=== PATIENT | male | born 1975 | race American Indian/Alaskan Native ===

== ENCOUNTER 2016-10-22 07:00 | Emergency (ER) | payer OTHER ==
[~2016-10-22] VITALS: Ht 167.6 cm; Wt 60.0 kg
[2016-10-22 07:17] VITALS: BP 143/96
[2016-10-22] MEDS ORDERED: IBUP200T48 PO (07:26)
[2016-10-22] MEDS ORDERED: KETOROLAC 30 MG/1 ML ONE (07:30)
[2016-10-22] MEDS ORDERED: KETOROLAC 30 MG/1 ML IM ONE (07:30)
== END 2016-10-22 09:00 | disposition home or self-care (01) ==
LOC: ED 07:45
DX: S69.92XA Unspecified injury of left wrist, hand and finger(s), initial encounter (principal); X58.XXXA Exposure to other specified factors, initial encounter; Y93.89 Activity, other specified; Y92.89 Other specified places as the place of occurrence of the external cause; Y99.9 Unspecified external cause status; M77.9 Enthesopathy, unspecified
CPT/HCPCS: 29125; 73110; 96372; 99284; J1885

== ENCOUNTER 2017-04-08 12:27 | Emergency (ER) | payer SELFPAY ==
[~2017-04-08] VITALS: Ht 167.6 cm; Wt 61.0 kg
[~2017-04-08 12:27] MED LIST: IBUP200T48 PO
[2017-04-08 12:28] VITALS: BP 128/76
[2017-04-08] MEDS ORDERED: KETOROLAC 30 MG/1 ML IM ONE (13:00)
[2017-04-08] MEDS ORDERED: KETOROLAC 30 MG/1 ML ONE (13:38)
== END 2017-04-08 14:11 | disposition home or self-care (01) ==
LOC: ED 14:05
DX: S02.5XXA Fracture of tooth (traumatic), initial encounter for closed fracture (principal); S00.83XA Contusion of other part of head, initial encounter; Y04.0XXA Assault by unarmed brawl or fight, initial encounter; Y93.89 Activity, other specified; Y92.410 Unspecified street and highway as the place of occurrence of the external cause; Y99.8 Other external cause status
CPT/HCPCS: 70100; 96372; 99284; J1885

== ENCOUNTER 2017-06-26 20:55 | Emergency (ER) | payer OTHER ==
[~2017-06-26] VITALS: Ht 167.6 cm; Wt 61.4 kg
[2017-06-26 20:57] VITALS: BP 148/93
[2017-06-26] MEDS ORDERED: LIDOCAINE 1%, 20ML ONE (21:23)
[2017-06-26] MEDS ORDERED: DIPH,PERTUSS(ACELL),TET VAC/PF 0.5 ML IM-VACC ONE (21:24)
[2017-06-26] MEDS ORDERED: BUPIVACAINE 0.25% ONE (21:26)
[2017-06-26] MEDS ORDERED: LIDOCAINE-MPF 2% ,5ML ONE (21:26)
[2017-06-26] MEDS ORDERED: BUPIVACAINE/PF-EPI 0.25% 1:200K SQ ONE (21:30)
[2017-06-26] MEDS ORDERED: LIDOCAINE 2%, 20ML SQ ONE (21:30)
== END 2017-06-26 23:18 | disposition home or self-care (01) ==
LOC: ED 21:47
DX: S01.01XA Laceration without foreign body of scalp, initial encounter (principal); S01.311A Laceration without foreign body of right ear, initial encounter; W01.0XXA Fall on same level from slipping, tripping and stumbling without subsequent striking against object, initial encounter; Y93.89 Activity, other specified; Y99.8 Other external cause status; Y92.009 Unspecified place in unspecified non-institutional (private) residence as the place of occurrence of the external cause
CPT/HCPCS: 12001; 12013